=== PATIENT | female | born 1960 | race Caucasian/White ===

== ENCOUNTER 2024-08-22 17:05 | Inpatient (IN) | payer MEDICARE ==
[~2024-08-22] VITALS: Ht 162.6 cm; Wt 59.9 kg
[2024-08-22 18:38] LABS: HEMATOCRIT. 33.3 % (36.0-48.0); HEMOGLOBIN. 11.0 g/dL (12.0-16.0); MEAN PLATELET VOLUME 7.7 fl (7.4-10.4); PLATELET 299 x1000/uL (130-400); RED BLOOD CELL COUNT 4.04 mill/uL (4.2-5.4); RED CELL DISTRIBUTION WIDTH 21.6 % (11.6-14.6)
[2024-08-22] MEDS: SODIUM CHLORIDE 0.9% 1,000 ML IV ONE (18:47)
[2024-08-22] MEDS: KETOROLAC 30MG/ML VIAL IV ONE (18:48)
[2024-08-22 18:52] LABS: CREATININE 1.1 mg/dL (0.6-1.0); UREA NITROGEN BLOOD 17 mg/dL (9-23)
[2024-08-22 18:53] LABS: TROPONIN I HIGH SENSITIVITY 15 ng/L (3.0-34)
[2024-08-22 19:15] LABS: LYMPHOCYTES % MANUAL 7.0 % (20.0-60.0); MONOCYTES % MANUAL 9.0 % (2.0-8.0); NEUTROPHILS % MANUAL 84.0 % (45.0-75.0); PLATELET ESTIMATE NORMAL
[2024-08-22] MEDS: SODIUM CHLORIDE 0.9% (SEPSIS BOLUS) IV ONE (21:26)
[2024-08-22] MEDS: VANCOMYCIN 1G PREMIX 200 ML IV ONE (21:36)
[2024-08-22 22:25] VITALS: BP 114/50; PULSE 75; RESP 18; TEMP 36.4; O2SAT 98
[2024-08-22] MEDS ORDERED: IOHEXOL-300 100 ML BOTTLE ONE (23:06)
[2024-08-22 23:16] VITALS: BP 114/50; PULSE 75; RESP 15; TEMP 36.5
[2024-08-22 23:26] VITALS: BP 118/48; PULSE 74; RESP 16; TEMP 36.6; O2SAT 100
[2024-08-22 23:56] VITALS: BP 122/50; PULSE 74; RESP 16; TEMP 36.6; O2SAT 100
[2024-08-23] VITALS: BP 122/50; PULSE 75; RESP 18; TEMP 36.3; O2SAT 99
[2024-08-23] MEDS ORDERED: MAGNESIUM/ALUMINUM HYDROXIDE/SIMETHICONE 30ML UDC PO PRN (01:00)
[2024-08-23] MEDS ORDERED: ZOLPIDEM TARTRATE 5MG TABLET PO PRN (01:00)
[2024-08-23] MEDS ORDERED: DIPHENHYDRAMINE 50MG/ML VIAL IV PRN (01:00)
[2024-08-23] MEDS ORDERED: ONDANSETRON HCL 4MG/2ML INJ IV PRN (01:00)
[2024-08-23] MEDS ORDERED: VANCOMYCIN 1000MG/250ML 250 ML IV SCH (01:00)
[2024-08-23] MEDS ORDERED: CLONIDINE 0.1MG TABLET PO PRN (01:00)
[2024-08-23] MEDS ORDERED: ACETAMINOPHEN 325MG TABLET PO PRN (01:00)
[2024-08-23 02:30] VITALS: BP 121/51; PULSE 74; RESP 18; TEMP 36.1; O2SAT 99
[2024-08-23 04:00] VITALS: BP 115/55; PULSE 70; RESP 18; TEMP 36.5; O2SAT 98
[2024-08-23] MEDS: SODIUM CHLORIDE 0.9% 3ML FLUSH IVF SCH (05:28)
[2024-08-23 08:00] VITALS: BP 109/49; PULSE 74; RESP 17; TEMP 36.6; O2SAT 100
[2024-08-23] MEDS ORDERED: VANCOMYCIN 500MG/100ML IV SCH (09:00)
[2024-08-23] MEDS: ENOXAPARIN 40MG/0.4ML SYR SUBCUT SCH (09:00)
[2024-08-23 12:00] VITALS: BP 118/50; PULSE 72; RESP 16; TEMP 36.7; O2SAT 100
[2024-08-23] MEDS: ACETAMINOPHEN 325MG TABLET PO PRN (13:27)
[2024-08-23] MEDS: AMPICILLIN/SULBACTAM 3G in SODIUM CHLORIDE 0.9% 100ML IV SCH (13:27)
[2024-08-23] MEDS: GUAIFENESIN-DM 200MG-20MG/10ML UDC PO PRN (13:42)
[2024-08-23] MEDS ORDERED: THROAT LOZENGES-BENZOCAINE/MENTH/CETYLPYRD CL LOZENGES MM PRN (15:30)
[2024-08-23 16:00] VITALS: BP 103/45; PULSE 67; RESP 16; TEMP 36.6; O2SAT 99
[2024-08-23] MEDS: VANCOMYCIN 500MG/100ML IV SCH (18:11)
[2024-08-24] VITALS: BP 114/45; PULSE 68; RESP 16; TEMP 36.8; O2SAT 98
[2024-08-24 04:00] VITALS: BP 108/55; PULSE 66; RESP 16; TEMP 36.6; O2SAT 98
[2024-08-24 07:37] LABS: HEMATOCRIT. 30.8 % (36.0-48.0); HEMOGLOBIN. 10.8 g/dL (12.0-16.0); MEAN PLATELET VOLUME 7.6 fl (7.4-10.4); PLATELET 254 x1000/uL (130-400); RED BLOOD CELL COUNT 3.82 mill/uL (4.2-5.4); RED CELL DISTRIBUTION WIDTH 21.3 % (11.6-14.6)
[2024-08-24 07:53] LABS: CREATININE 0.7 mg/dL (0.6-1.0)
[2024-08-24 07:54] LABS: UREA NITROGEN BLOOD 13 mg/dL (9-23)
[2024-08-24 07:55] LABS: ASPARTATE AMINOTRANSFERASE 28 IU/L (<34)
[2024-08-24 07:56] LABS: BILIRUBIN DIRECT 0.4 mg/dL (<=3.0); BILIRUBIN TOTAL 0.6 mg/dL (0.1-1.0); PROTEIN TOTAL 4.2 g/dL (6.0-8.3)
[2024-08-24 08:00] VITALS: BP 120/48; PULSE 64; RESP 17; TEMP 36.7; O2SAT 95
[2024-08-24] MEDS: POTASSIUM CHLORIDE 20MEQ TABLET SR PO SCH ×2 (10:31→14:13)
[2024-08-24 12:00] VITALS: BP 131/54; PULSE 70; RESP 18; TEMP 36.7; O2SAT 95
[2024-08-24 16:00] VITALS: BP 117/49; PULSE 71; RESP 17; TEMP 36.6; O2SAT 96
[2024-08-24 16:51] LABS: BAND% 3.0 % (1.0-6.0); LYMPHOCYTES % MANUAL 14.0 % (20.0-60.0); MONOCYTES % MANUAL 4.0 % (2.0-8.0); NEUTROPHILS % MANUAL 79.0 % (45.0-75.0); PLATELET ESTIMATE NORMAL
[2024-08-24 20:00] VITALS: BP 115/42; PULSE 75; RESP 18; TEMP 36.7; O2SAT 98
[2024-08-25] VITALS: BP 118/46; PULSE 75; RESP 16; TEMP 36.7; O2SAT 97
[2024-08-25 04:00] VITALS: BP 134/41; PULSE 71; RESP 17; TEMP 36.6; O2SAT 100
[2024-08-25 08:00] VITALS: BP 131/50; PULSE 65; RESP 17; TEMP 36.6; O2SAT 100
[2024-08-25 12:00] VITALS: BP 129/48; PULSE 67; RESP 17; TEMP 36.5; O2SAT 96
[2024-08-25 12:23] LABS: BASOPHILS % 0.1 % (0.0-2.0); EOSINOPHILS % 1.9 % (0.0-5.0); HEMATOCRIT. 33.3 % (36.0-48.0); HEMOGLOBIN. 11.2 g/dL (12.0-16.0); LYMPHOCYTES % 13.1 % (20.0-50.0); MEAN PLATELET VOLUME 7.2 fl (7.4-10.4); MONOCYTES % 6.6 % (2.0-8.0); NEUTROPHILS % 78.3 % (40.0-76.0); PLATELET 239 x1000/uL (130-400); RED BLOOD CELL COUNT 4.09 mill/uL (4.2-5.4); RED CELL DISTRIBUTION WIDTH 21.6 % (11.6-14.6)
[2024-08-25 12:51] LABS: CREATININE 0.7 mg/dL (0.6-1.0); UREA NITROGEN BLOOD 6 mg/dL (9-23)
[2024-08-25] MEDS: POTASSIUM CHLORIDE 20MEQ TABLET SR PO SCH ×2 (13:35→15:53)
[2024-08-25] MEDS: MAGNESIUM 4 G PREMIX 100 ML IV NR (15:54)
[2024-08-25 16:00] VITALS: BP 131/54; PULSE 67; RESP 17; TEMP 36.7; O2SAT 96
[2024-08-25 20:00] VITALS: BP 123/79; PULSE 73; RESP 19; TEMP 36.7; O2SAT 100
[2024-08-26] VITALS: BP 128/76; PULSE 73; RESP 16; TEMP 36.6; O2SAT 100
[2024-08-26 04:00] VITALS: BP 130/80; PULSE 70; RESP 17; TEMP 36.7; O2SAT 100
[2024-08-26 05:45] LABS: BASOPHILS % 0.3 % (0.0-2.0); EOSINOPHILS % 2.5 % (0.0-5.0); HEMATOCRIT. 30.8 % (36.0-48.0); HEMOGLOBIN. 10.3 g/dL (12.0-16.0); LYMPHOCYTES % 20.7 % (20.0-50.0); MEAN PLATELET VOLUME 7.2 fl (7.4-10.4); MONOCYTES % 7.3 % (2.0-8.0); NEUTROPHILS % 69.2 % (40.0-76.0); PLATELET 215 x1000/uL (130-400); RED BLOOD CELL COUNT 3.80 mill/uL (4.2-5.4); RED CELL DISTRIBUTION WIDTH 21.0 % (11.6-14.6)
[2024-08-26 06:01] LABS: CREATININE 0.6 mg/dL (0.6-1.0)
[2024-08-26 06:03] LABS: UREA NITROGEN BLOOD 6 mg/dL (9-23)
[2024-08-26 06:05] LABS: PHOSPHORUS 1.8 mg/dL (2.5-4.9)
[2024-08-26 08:00] VITALS: RESP 16
[2024-08-26] MEDS: POTASSIUM CHLORIDE 20MEQ TABLET SR PO SCH (08:56)
[2024-08-26 12:00] VITALS: BP 138/58; PULSE 69; RESP 16; TEMP 36.4
[2024-08-26 16:00] VITALS: BP 140/52; PULSE 60; RESP 20; TEMP 36.5; O2SAT 100
[2024-08-26 20:00] VITALS: BP 125/54; PULSE 75; RESP 19; TEMP 37.2; O2SAT 100
[2024-08-26] MEDS: LOPERAMIDE HCL 2MG CAPSULE PO NR (22:15)
[2024-08-27] VITALS: BP 122/64; PULSE 72; RESP 19; TEMP 36; O2SAT 98
[2024-08-27 04:00] VITALS: BP 121/55; PULSE 85; RESP 18; TEMP 36.7; O2SAT 99
[2024-08-27 08:00] VITALS: BP 142/61; PULSE 94; RESP 20; TEMP 36.4; O2SAT 98
[2024-08-27] MEDS ORDERED: SULF1TAB48 MT (08:24)
[2024-08-27] MEDS ORDERED: IMOD PO (08:24)
[2024-08-27] MEDS ORDERED: AMOX1TAB16 MT (08:24)
[2024-08-27] MEDS: LOPERAMIDE HCL 2MG CAPSULE PO PRN (08:59)
[2024-08-27 11:19] LABS: BASOPHILS % 0.4 % (0.0-2.0); EOSINOPHILS % 1.6 % (0.0-5.0); HEMATOCRIT. 28.7 % (36.0-48.0); HEMOGLOBIN. 9.7 g/dL (12.0-16.0); LYMPHOCYTES % 21.0 % (20.0-50.0); MEAN PLATELET VOLUME 7.0 fl (7.4-10.4); MONOCYTES % 8.4 % (2.0-8.0); NEUTROPHILS % 68.6 % (40.0-76.0); PLATELET 197 x1000/uL (130-400); RED BLOOD CELL COUNT 3.58 mill/uL (4.2-5.4); RED CELL DISTRIBUTION WIDTH 22.0 % (11.6-14.6)
[2024-08-27 11:30] LABS: UREA NITROGEN BLOOD < 5 mg/dL (9-23)
[2024-08-27 11:32] LABS: PHOSPHORUS 1.2 mg/dL (2.5-4.9)
[2024-08-27 12:00] VITALS: BP 110/66; PULSE 75; RESP 17; TEMP 36.6; O2SAT 95
[2024-08-27 13:30] LABS: CREATININE 0.4 mg/dL (0.6-1.0)
[2024-08-27 16:00] VITALS: BP 137/63; PULSE 83; RESP 20; TEMP 36.6; O2SAT 97
[2024-08-27] MEDS: MAGNESIUM 2 G PREMIX 50 ML IV SCH (17:12)
[2024-08-27 20:00] VITALS: BP_SYST 136; BP_SYST 143; BP_DIAS 72; BP_DIAS 73; PULSE 78; PULSE 94; RESP 20; TEMP 36.5; TEMP 36.9; O2SAT 100
[2024-08-28] VITALS: BP 127/54; PULSE 72; RESP 17; TEMP 36.5; O2SAT 100
[2024-08-28 04:00] VITALS: BP 135/66; PULSE 69; RESP 17; TEMP 36.5; O2SAT 98
[2024-08-28 08:00] VITALS: BP 135/68; PULSE 78; RESP 20; TEMP 36.6; O2SAT 95
[2024-08-28] MEDS: POTASSIUM-SODIUM PHOSPHATE POWDER PACKET PO NR (08:09)
[2024-08-28] MEDS: POTASSIUM PHOSPHATE 15 MMOL in DEXT 5% WATER 245 ML IV SCH (10:21)
[2024-08-28 10:42] VITALS: BP 135/68; PULSE 78; TEMP 97.9; O2SAT 95
== END 2024-08-28 11:56 | disposition home or self-care (01) | DRG 872 ==
LOC: ER 17:05 → EDBEDREQ 19:19 → EDBEDREQTM 21:17 → EDBEDREQ 21:17 → ENRESERV 21:40 → 8EST 22:32
PROVIDERS: ADMIT Internal Medicine; ATTEND Internal Medicine
DX: A41.9 Sepsis, unspecified organism (principal); M35.00 Sjogren syndrome, unspecified; I10 Essential (primary) hypertension; E11.9 Type 2 diabetes mellitus without complications; I25.10 Atherosclerotic heart disease of native coronary artery without angina pectoris; K11.20 Sialoadenitis, unspecified; E87.8 Other disorders of electrolyte and fluid balance, not elsewhere classified; R19.7 Diarrhea, unspecified; Z55.6 Problems related to health literacy; Z88.1 Allergy status to other antibiotic agents; Z90.710 Acquired absence of both cervix and uterus
CPT/HCPCS: 36415; 70487; 80048; 80076; 80202; 83605; 83735; 84100; 84484; 85025; 86038; 99291; J0295; J1650; J1885; J3373; J3475; J3490; J7030; J7050; J7060; Q9967